=== PATIENT | male | born 1945 | race Caucasian/White ===

== ENCOUNTER → 2016-10-01 | Outpatient (CLI) | payer MEDICARE, OTHER ==
[~2016-10-01] MED LIST: AMBIEN10 MG PO; BENAZEPRIL HCL20 MG PO; CLARITIN10 MG PO; COLACE100 MG PO; DAILY MULTIPLE1 EAC1 PO; DILAUDID 2MG(HYD2 MG PO; LIPITOR10 MG PO; MIRALAX17 GM PO; NORVASC10 MG PO; PAXIL20 MG PO; TYLENOL EXTRA500 MG PO; VALIUM5 MG PO; XARELTO10 MG PO
--- NOTE | 2016-10-01 15:47 | NUR ---
PRE-OP NOTE 10/01: Introduced self and CM role to Nabil. He says he lives in [place], with his and plans to return there upon dismissal. Medicare AB and [facility] as supplement. His PCP is , he gets his medications filled at [facility] pharmacy. He manages them on his own and will continue to do so when he goes home from surgery. He says that his will be able to help him out after surgery. They lives in a one level house, with only a slight 3in stair to get into the house. He has a cane at home and plans to obtain a FWW before surgery next week to use post surgery if needed. Has high stools at home, denies the need for a tub/shower bench at this time, but he was given DME resource list on where he could obtain one before or after surgery should he change his mind. Nabil is scheduled for surgery on 10/09 with for a right knee revision. No concerns about being able to return home upon dismissal. CM to continue to follow and assist.
== END | disposition disaster alternative care site (69) ==
LOC: GPOC 14:02 → EDSTATUS 10-09
DX: Z01.812 Encounter for preprocedural laboratory examination (principal); Z96.651 Presence of right artificial knee joint

== ENCOUNTER 2016-10-09 07:00 | Inpatient (IN) | payer MEDICARE, OTHER ==
[~2016-10-09] VITALS: Ht 182.9 cm; Wt 98.1 kg
--- NOTE | ~2016-10-09 | OR ---
PATIENT'S NAME: DHARMESH NEUMANN [facility] AGE: 71 Y [address] ROOM: [place] [address] LOCATION: [facility] ADMIT DATE: 10/09/2016 OR/Procedure Report DISCHARGE DATE: FAMILY PHYSICIAN: Rl De Los Santos ATTENDING PHYSICIAN: DEION DUARTE SURGEON: Deion Duarte MD KILN STACKER: 1. Rylan Wilde PA-C. 2. Angel Johns CST/INTERNAL COMBUSTION ENGINE SUBASSEMBLER. DATE OF PROCEDURE: 10/09/2016 POSTOPERATIVE DIAGNOSES: 1. 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 2. Right knee ligamentous laxity. 3. Retained hardware (ligament staple) at distal femur from previous ACL reconstruction. POSTOPERATIVE DIAGNOSES: 1. 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 2. Right knee ligamentous laxity. 3. Retained hardware (ligament staple) at distal femur from previous ACL reconstruction. PROCEDURE PERFORMED: 1. Revision of right total knee arthroplasty (exchange of tibial polyethylene insert) with extensive right knee synovectomy. 2. Removal of hardware right distal femur (ligament staple). ANESTHESIA: Spinal anesthesia plus adductor canal block plus subcutaneous and periarticular local anesthesia (ropivacaine with epinephrine). DRAINS: None. SPECIMENS: Synovial fluid for (cell count and culture). EXPLANT: 1. [employer] Duracon 11 mm extra-large PCL retaining tibial polyethylene insert. 2. Ligament staple from right distal femur. IMPLANTS: [place]-[employer] 13 mm extra-large PCL retaining tibial polyethylene insert. COMPLICATIONS: None. PATIENT'S NAME: DHARMESH NEUMANN [facility] AGE: 71 Y [address] ROOM: [place] [address] LOCATION: [facility] ADMIT DATE: 10/09/2016 OR/Procedure Report DISCHARGE DATE: FAMILY PHYSICIAN: Rl De Los Santos ATTENDING PHYSICIAN: DEION DUARTE INDICATION FOR PROCEDURE: Mr. Neumann is a 71-year-old male presenting with progressive discomfort and associated mechanical symptoms in his right knee. He underwent a primary right total knee arthroplasty (performed elsewhere) many years ago. He has been experiencing progressive symptoms over the last year. His previous orthopedic history is significant for having undergone multiple surgeries (including ligament reconstruction) in the 1969. He has ligament michelle of the distal femur and proximal tibia from his previous ligament reconstruction. Risks, benefits, limitations, and alternatives to this procedure have been thoroughly reviewed with the patient. We have specifically reviewed risks and implications of infection, deep venous thrombosis, pulmonary embolism, mortality, recurrent wear and/or loosening, stiffness, instability, neurovascular complications, blood transfusion risks, and potential need for further revision. Informed consent granted. Preoperative radiographs demonstrates a well-fixed, well-aligned total knee arthroplasty. There are no significant radiolucencies. DESCRIPTION OF PROCEDURE: The patient was positioned supine after administration of regional anesthesia and prophylactic antibiotics. A well- padded pneumatic tourniquet was placed around his right proximal thigh and his right lower extremity was prepped and draped with vigilant sterile technique. Examination under anesthesia demonstrated 5 degrees of hyperextension and 130 degrees of flexion. There was approximately 3 mm of MCL laxity and 4 mm of LCL laxity. There was a moderate effusion. There was a well-healed midline arthrotomy scar. There were well-healed oblique scars over the medial and lateral joint lines. There was a grade 1+ posterior drawer. The right lower extremity was prepped and draped with vigilant sterile technique and subsequently elevated and exsanguinated with an Esmarch wrap prior to inflation of the tourniquet to 300 mmHg. The knee was approached through the preexisting longitudinal midline scar. There were actually 2 midline scars intersecting one another in close proximity. A medial parapatellar arthrotomy was performed. There was a large amount of benign-appearing translucent synovial fluid. There was no metallosis. There was generalized mildly proliferative espinoza-colored synovitis consistent with polyethylene wear. An extensive synovectomy was performed. There was superficial wear of the polyethylene at the apex of the patellar component. Patellar tracking was neutral. The interfaces of all 3 components were thoroughly inspected, and all 3 components were well fixed and acceptably aligned. The tibial polyethylene insert was extracted to facilitate access to the posterior portion of the synovectomy. The entire joint space was PATIENT'S NAME: DHARMESH NEUMANN [facility] AGE: 71 Y [address] ROOM: [place] [address] LOCATION: [facility] ADMIT DATE: 10/09/2016 OR/Procedure Report DISCHARGE DATE: FAMILY PHYSICIAN: De Los Santos, Gerold ATTENDING PHYSICIAN: DUARTE,FELICITAS thoroughly irrigated with several liters of bacteriostatic pulsatile saline lavage after extraction of the tibial polyethylene insert. A 2 mm thicker polyethylene insert trial was placed. This eliminated the hyperextension and significantly improved the medial and lateral collateral ligament laxity as well as the posterior cruciate ligament laxity. It should be noted that the extracted tibial polyethylene insert demonstrated extensive delamination of the central 2-3 cm diameter region at both the medial and lateral tibial plateaus. There was not complete wear through of the tibial polyethylene insert. A new tibial polyethylene insert was placed. Again, we extracted an 11 mm insert and implanted a 13 mm insert. Final range of motion was 0-130 degrees of flexion. The posterior drawer had been eliminated. There was less than or equal to 1 mm of MCL and LCL laxity. There was no residual passive hyperextension. Patellar tracking remained optimal. The joint space was thoroughly irrigated one final time. Periarticular soft tissues were infiltrated with ropivacaine with epinephrine. The arthrotomy was closed with multiple simple interrupted #1 Vicryl sutures. Subcutaneous tissues were thoroughly irrigated one final time and reapproximated with simple deep interrupted 0 Vicryl. The skin was closed with superficial buried interrupted 2-0 Vicryl, followed by surgical michelle. The dressings consisted of a Mepilex dressing followed by sterile gauze and an ABD pad. There were no complications. It should be noted that the physician's psychiatric technician assistant played an active, integral role throughout this entire operation. By providing expert retraction, they greatly facilitated and expedited safe and effective exposure of the distal femur, proximal tibia and patella for preparation and implantation of the components. They were also actively involved in the patient's positioning, prepping and draping, as well as wound closure. MD CHOCO FARAH/vignesh /[id number] d: 10/10/16 0857 t: 10/26/16 0749, OPERATIVE SUMMARY
--- NOTE | ~2016-10-09 | DS ---
PATIENT'S NAME: DHARMESH MARTIN [facility] AGE: 71 Y [address] ROOM: [place] [address] LOCATION: [facility] ADMIT DATE: 10/09/2016 Discharge Summary DISCHARGE DATE: 10/11/2016 FAMILY PHYSICIAN: Rl De Los Santos ATTENDING PHYSICIAN: Ke Palacios This is a 71-year-old male. DATE OF PROCEDURE: 10/09/2016. PRIMARY DIAGNOSIS: Failed right total knee arthroplasty. SECONDARY DIAGNOSIS: 1. Anxiety disorder. 2. Hypertension. 3. Hyperlipidemia. PROCEDURE PERFORMED: Right total knee arthroplasty revision. HISTORY: The patient is a 71-year-old male, who presents with failed right total knee arthroplasty and associated severely compromised activities of daily living. The patient has decided to proceed with total knee arthroplasty after having been thoroughly counseled regarding the risks, benefits, limitations and alternatives. Please refer to the outpatient clinic notes and admission history and physical for this patient. HOSPITAL COURSE: The patient underwent a failed right total knee arthroplasty on 10/09/2016 without complications. Spinal anesthesia plus adductor canal block plus subcutaneous and periarticular local anesthesia was utilized. The patient received 24 hours of perioperative prophylactic antibiotics and remained hemodynamically stable, neurovascularly intact throughout the entire hospital course. The postoperative prophylactic deep venous thrombosis prophylaxis consisted of Xarelto, early mobilization and pneumatic compression devices. Daily physical therapy for gait training, transfer training range of motion and quadriceps isometric exercises were received. The patient progressed well in physical therapy. On the date of discharge, 10/11/2016, the incision at the knee was healing well and showed no signs of infection. DISPOSITION: Home. DISCHARGE ACTIVITY: The patient is to bear weight as tolerated with range of motion and quadriceps isometric exercises as instructed. The operative extremity is to be elevated at least 90% of the day. There is to be sterile 4x4 gauze dressings to the incision daily. Dr. Palacios is to be notified immediately if there is any increased pain, fevers, chills erythema or PATIENT'S NAME: DHARMESH MARTIN [facility] AGE: 71 Y [address] ROOM: [place] [address] LOCATION: [facility] ADMIT DATE: 10/09/2016 Discharge Summary DISCHARGE DATE: 10/11/2016 FAMILY PHYSICIAN: Rl De Los Santos ATTENDING PHYSICIAN: Ke Palacios. DISCHARGE MEDICATIONS: 1. Xarelto 10 mg one tablet p.o. daily for 12 days for postoperative DVT prophylaxis. 2. Hydromorphone 2 mg one to two tablets p.o. every 4 hours p.r.n. for pain. 3. Diazepam 5 mg 1/2 to 1 tablet p.o. every 6 hours p.r.n. for muscle spasms. 4. The patient was instructed to continue all his other preadmission medications as instructed by his Internal Medicine doctor. FOLLOWUP: Followup appointment is to be with Dr. Palacios's office on 10/16/2016 for his initial postoperative evaluation with x-rays and staple removal. ODETTE MCGOWAN PA-C FOR MD SJ FARHAW/modl /[id number] d: 10/16/16 0145 t: 10/22/16 0954, DISCHARGE SUMMARY
[~2016-10-09 07:00] MED LIST changes: -COLACE100 MG PO; -DILAUDID 2MG(HYD2 MG PO; -MIRALAX17 GM PO; -VALIUM5 MG PO; -XARELTO10 MG PO
[2016-10-09 11:05] LABS: INR - (THERAPEUTIC) 0.97 (0.92-1.07); PROTIME 10.2 SECONDS (9.8-11.4)
[2016-10-10 05:10] LABS: HEMATOCRIT 41.7 % (37.0-53.0); HEMOGLOBIN 14.6 g/dL (11.0-16.0)
[2016-10-11] MEDS ORDERED: COLACE100 MG PO (11:46)
[2016-10-11] MEDS ORDERED: MIRALAX17 GM PO (11:49)
[2016-10-11] MEDS ORDERED: XARELTO10 MG PO (11:51)
[2016-10-11] MEDS ORDERED: VALIUM5 MG PO (11:52)
[2016-10-11] MEDS ORDERED: DILAUDID 2MG(HYD2 MG PO (11:52)
== END 2016-10-11 15:55 | disposition disaster alternative care site (69) | DRG 489 ==
LOC: G3N 10:16
PROVIDERS: ADMIT Orthopaedic Surgery
PROC: 0SUV09Z Supplement Right Knee Joint, Tibial Surface with Liner, Open Approach (ICD-10-PCS; principal; 2016-10-09)
PROC: 0SPC09Z Removal of Liner from Right Knee Joint, Open Approach (ICD-10-PCS; principal; 2016-10-09)
DX: T84.093A Other mechanical complication of internal left knee prosthesis, initial encounter (principal); I10 Essential (primary) hypertension; E78.5 Hyperlipidemia, unspecified; F32.9 Major depressive disorder, single episode, unspecified; F41.9 Anxiety disorder, unspecified; M19.90 Unspecified osteoarthritis, unspecified site; M23.91 Unspecified internal derangement of right knee; M65.9 Synovitis and tenosynovitis, unspecified; N40.0 Benign prostatic hyperplasia without lower urinary tract symptoms; R73.9 Hyperglycemia, unspecified; Z88.0 Allergy status to penicillin; Z88.5 Allergy status to narcotic agent; E55.9 Vitamin D deficiency, unspecified
CPT/HCPCS: C1776; J1100; J1885; J2001; J2250; J2405; J2795; J7050; J7120

== ENCOUNTER 2016-10-13 10:51 | Emergency (ER) | payer MEDICARE, OTHER ==
--- NOTE | ~2016-10-13 | CON ---
PATIENT'S NAME: DHARMESH NEUMANN [facility] AGE: 71 Y [address] ROOM: [place] [address] LOCATION: [facility] ADMIT DATE: 10/13/2016 Consultation DISCHARGE DATE: 10/13/2016 FAMILY PHYSICIAN: Rl De Los Santos ATTENDING PHYSICIAN: Hudson Madden DATE OF CONSULTATION: 10/13/2016 REFERRING PHYSICIAN: Benitez Carranza MD CHIEF COMPLAINT: Wet dressing after revision right total knee arthroplasty. HISTORY OF PRESENT ILLNESS: Mr. Neumann is a 71-year-old gentleman, who underwent a revision right total knee arthroplasty by Dr. Palacios on Sunday, October 09, 2016 here at [facility]. The patient was subsequently discharged home. His hospital course was uneventful. I received a call from the patient through the answering service this morning that while he was showering and allowing the water to run over the leg, he noticed that the dressing got wet. He was concerned, and his prompted him to call the service. I explained to the patient that I was concerned and I would like him to come and meet me in the emergency room to be seen and evaluated. He presents this morning. He reports that he is afebrile. He reports he is otherwise doing well. His pain is well controlled. He reports no bloody drainage. He believes, he saw the dressing is wet because of some water that got from the shower that got underneath the bandage sealed. Currently, the patient denies any constitutional symptoms such as fever, chills, or night sweats. He also denies any dizziness, chest pain, shortness of breath, blurred vision, nausea, vomiting, or diarrhea. REVIEW OF SYSTEMS: A 10 point review of systems is otherwise mentioned above. It is otherwise negative otherwise mentioned above. PAST MEDICAL HISTORY: Includes previous total hip and knee replacement. Most recently the patient underwent a revision right total knee arthroplasty by Dr. Palacios on 10/09/2016. SOCIAL HISTORY: The patient lives at home. He is independent. He denies any alcohol, tobacco, or illicit drug use. MEDICATIONS: Include: PATIENT'S NAME: DHARMESH NEUMANN [facility] AGE: 71 Y [address] ROOM: [place] [address] LOCATION: [facility] ADMIT DATE: 10/13/2016 Consultation DISCHARGE DATE: 10/13/2016 FAMILY PHYSICIAN: Rl De Los Santos ATTENDING PHYSICIAN: Hudson Madden 1. Amlodipine. 2. Benazepril. 3. Paxil. 4. Atorvastatin. 5. Multivitamin. 6. Tylenol. 7. Diazepam. 8. Hydrocodone. ALLERGIES: INCLUDE PENICILLIN. FAMILY HISTORY: Includes hypertension. PHYSICAL EXAMINATION: VITAL SIGNS: Include a weight of 103 kg, pulse is 66, respirations of 18, SpO2 96% on room air, temperature 98.3, blood pressure 151/68. HEENT: Normocephalic and atraumatic. Extraocular movements are intact. PERRLA. Moist mucous membranes. Oropharyngeal airway is clear. NECK: Supple. Trachea is in midline. CARDIOVASCULAR: Regular rate and rhythm. CHEST: Normal symmetric respirations observed bilaterally. ABDOMEN: Soft, nontender, and nondistended. MUSCULOSKELETAL: Focal examination of the patient's right lower extremity reveals he is grossly neurologically intact distally. Compartments of thigh, leg, and foot are soft. There is a fresh surgical incision with metallic michelle in place over the anterior aspect of the knee. There is a small knee joint effusion. There is no erythema, warmth, or drainage. The patient is neurovascularly intact distally. SPN/TPN/tibial nerve distributions are intact to light touch. There is palpable dorsalis pedal and posterior tibial pulses. The patient is actively able to dorsiflex and plantar flex the ankle. IMPRESSION: Revision right total knee arthroplasty on 10/09/2016 with soaked dressing from shower water. PLAN: I had a long discussion with the patient today regarding the right knee. I contacted Dr. Palacios and spoke to him directly. The surgical incision is clean, dry, and intact. There is no bloody drainage. There is no concern for infection. The dressing appears to be after it got wet in the manner which the patient described. I placed a new sterile Mepilex dressing and sealed it with Tegaderm. Dr. Palacios also saw and evaluated the patient in the emergency room as he happened to be in the hospital. We concurred that the patient may PATIENT'S NAME: DHARMESH NEUMANN [facility] AGE: 71 Y [address] ROOM: [place] [address] LOCATION: [facility] ADMIT DATE: 10/13/2016 Consultation DISCHARGE DATE: 10/13/2016 FAMILY PHYSICIAN: Rl De Los Santos ATTENDING PHYSICIAN: Hudson Madden be discharged to home but he has an appointment to follow up in our office on Saturday of this coming week. I have answered all of his questions today in the office to his satisfaction. MD KHADAR UGALDE/vignesh /[id number] d: 10/13/16 1641 t: 10/15/16 0821, CONSULTATION REPORT
--- NOTE | ~2016-10-13 | ER ---
PATIENT'S NAME: DHARMESH NEUMANN [facility] AGE: 71 Y [address] ROOM: [place] [address] LOCATION: ED ADMIT DATE: 10/13/2016 ER/Outpatient Report DISCHARGE DATE: 10/13/2016 FAMILY PHYSICIAN: Rl De Los Santos ATTENDING PHYSICIAN: Hudson Madden CHIEF COMPLAINT: Dressing change. HISTORY OF PRESENT ILLNESS: Mr. Neumann came in at the request of Dr. Carranza, orthopedic surgeon, for wound evaluation and dressing change. He received a knee replacement revision by Dr. Palacios earlier in the week. The dressing has become saturated with blood, and he just want to be evaluated. No other complaints. Pain is adequately controlled. The patient states he is progressing well. No fevers or other infectious signs or symptoms. PAST MEDICAL HISTORY: As documented on the record and has been reviewed by me. SOCIAL HISTORY: As documented on the record and has been reviewed by me. MEDICATIONS: As documented on the record and have been reviewed by me. ALLERGIES: DOCUMENTED ON THE RECORD AND HAVE BEEN REVIEWED BY ME. REVIEW OF SYSTEMS: All systems reviewed and negative except as noted in the HPI. PHYSICAL EXAMINATION: VITAL SIGNS: Reviewed and within normal limits other than slight hypertension at 151/68. GENERAL: Age-appropriate male, in no obvious pain or distress. NEUROLOGIC: Awake and alert. GCS 15. HEENT: Unremarkable. CHEST: Even and unlabored respirations. HEART: Heart rate is regular. ABDOMEN: Appears benign. BACK: Deferred. EXTREMITIES: Right lower extremity has some Mepilex dressings to the surgical site, which were removed and found to be saturated with blood. The wound was covered with iodoform gauze and appears to be intact with scant bleeding at PATIENT'S NAME: DHARMESH NEUMANN [facility] AGE: 71 Y [address] ROOM: [place] [address] LOCATION: [facility] ADMIT DATE: 10/13/2016 ER/Outpatient Report DISCHARGE DATE: 10/13/2016 FAMILY PHYSICIAN: Rl De Los Santos ATTENDING PHYSICIAN: Hudson Madden the most proximal aspect. No evidence of infection, erythema, or warmth. Extremities otherwise warm and well perfused. SKIN: Intact except for surgical site. LABORATORY DATA AND X-RAYS: None. IMPRESSION: Dressing change. EMERGENCY DEPARTMENT COURSE: The patient was seen and evaluated. No emergency condition exists. Care was transitioned exclusively to Dr. Carranza. Please see his evaluation notes for complete evaluation and dressing change. We did secure supplies for said dressing change. MD JYOTI MOREL/vignesh /[id number] d: 10/13/16 1849 t: 10/30/16 0859, OUTPATIENT REPORT
[~2016-10-13 10:51] MED LIST changes: +COLACE100 MG PO; +DILAUDID 2MG(HYD2 MG PO; +MIRALAX17 GM PO; +VALIUM5 MG PO; +XARELTO10 MG PO
== END 2016-10-13 12:15 | disposition disaster alternative care site (69) ==
LOC: GMED 10:51
DX: Z47.1 Aftercare following joint replacement surgery (principal); I10 Essential (primary) hypertension; Z96.651 Presence of right artificial knee joint; Z96.641 Presence of right artificial hip joint; Z88.0 Allergy status to penicillin; Z79.891 Long term (current) use of opiate analgesic; Z79.899 Other long term (current) drug therapy